=== PATIENT | female | born 1965 | race Caucasian/White ===

== ENCOUNTER → 2016-09-15 | Outpatient (CLI) | payer OTHER ==
[~2016-09-15] MED LIST: IBUPROFEN800 MG PO; NORCO 325 MG-51 TAB PO; PREDNISONE 20MG20 MG PO; TRIAMCINOLON 0.15 GM TP; TYLENOL W/CODEI1 TA2 PO; VISTARIL25 MG PO
[2016-09-15 09:36] LABS: BUN 15 mg/dL (7-18)
[2016-09-15 09:39] LABS: GFR (ESTIMATED) 88 ML/MIN (59-)
== END ==
LOC: LAB 08:06
PROVIDERS: Internal Medicine
DX: R91.8 Other nonspecific abnormal finding of lung field (principal); R91.1 Solitary pulmonary nodule; Z01.818 Encounter for other preprocedural examination